=== PATIENT | female | born 1950 | race Two or more races ===

== ENCOUNTER 2018-07-22 02:25 | Emergency (ER) | payer OTHER ==
[~2018-07-22] VITALS: Ht 152.4 cm; Wt 63.5 kg
[2018-07-22] MEDS ORDERED: ZOCOR5 MG (02:37)
[2018-07-22] MEDS ORDERED: TOPROL XL100 MG (02:37)
[2018-07-22] MEDS ORDERED: ASPIR 8181 MG (02:37)
[2018-07-22] MEDS ORDERED: SKELAXIN800 MG PO (06:55)
[2018-07-22] MEDS ORDERED: ULTRACET PO (06:55)
[2018-07-22] MEDS ORDERED: BACTRIM DS TAB1 EACH PO (06:59)
== END 2018-07-22 08:07 | disposition home or self-care (01) ==
LOC: ER 02:25
DX: R10.32 Left lower quadrant pain (principal); R10.12 Left upper quadrant pain

== ENCOUNTER 2022-06-20 07:16 | Outpatient (CLI) | payer OTHER ==
[~2022-06-20 07:16] MED LIST: ASPIR 8181 MG; ATORVASTATIN CA20 MG PO; BACTRIM DS TAB1 EACH PO; SKELAXIN800 MG PO; TOPROL XL100 MG; ULTRACET PO; ZOCOR5 MG
== END 2022-06-20 07:17 | disposition home or self-care (01) ==
LOC: NUCLEAR 07:16
PROVIDERS: ATTEND Internal Medicine
DX: R19.7 Diarrhea, unspecified (principal); R10.9 Unspecified abdominal pain; Z88.8 Allergy status to other drugs, medicaments and biological substances
CPT/HCPCS: 78227; A9537; J2805

== ENCOUNTER 2022-10-15 09:18 | Emergency (ER) | payer OTHER ==
[~2022-10-15] VITALS: Ht 152.4 cm; Wt 65.8 kg
[2022-10-15] MEDS ORDERED: KETO10TA2 PO (14:02)
== END 2022-10-15 14:26 | disposition home or self-care (01) ==
LOC: ER 09:18
DX: M79.605 Pain in left leg (principal); M25.562 Pain in left knee; Z88.8 Allergy status to other drugs, medicaments and biological substances; I10 Essential (primary) hypertension; I87.2 Venous insufficiency (chronic) (peripheral)

== ENCOUNTER 2022-10-16 19:58 | Emergency (ER) | payer OTHER ==
[~2022-10-16] VITALS: Ht 152.4 cm; Wt 65.8 kg
[~2022-10-16 19:58] MED LIST changes: +KETO10TA2 PO
[2022-10-17] MEDS ORDERED: KETO10TA2 PO (00:42)
[2022-10-17] MEDS ORDERED: ORPHENADRINE C100 MG PO (00:42)
== END 2022-10-17 01:34 | disposition home or self-care (01) ==
LOC: ER 19:58
DX: M25.562 Pain in left knee (principal)

== ENCOUNTER 2022-12-13 09:23 | Emergency (ER) | payer OTHER ==
[~2022-12-13] VITALS: Ht 157.5 cm; Wt 63.5 kg
[~2022-12-13 09:23] MED LIST changes: +ORPHENADRINE C100 MG PO
[2022-12-13] MEDS ORDERED: LOSARTAN POTAS100 MG PO (09:32)
== END 2022-12-13 12:14 | disposition home or self-care (01) ==
LOC: ER 09:23
DX: R10.9 Unspecified abdominal pain (principal); N39.0 Urinary tract infection, site not specified; Z88.8 Allergy status to other drugs, medicaments and biological substances; I10 Essential (primary) hypertension

== ENCOUNTER 2023-11-11 07:24 | Outpatient (CLI) | payer OTHER ==
[~2023-11-11 07:24] MED LIST changes: +LOSARTAN POTAS100 MG PO
== END 2023-11-11 07:29 | disposition home or self-care (01) ==
LOC: TOM 07:24
PROVIDERS: ATTEND Internal Medicine
DX: R10.9 Unspecified abdominal pain (principal); R74.01 Elevation of levels of liver transaminase levels

== ENCOUNTER → 2023-11-11 08:31 | Outpatient (CLI) | payer OTHER ==
[2023-11-11 09:58] LABS: CREATININE SERUM 0.85 mg/dL (0.55-1.02)
== END | disposition home or self-care (01) ==
LOC: LAB 08:31
PROVIDERS: ATTEND Radiology Diagnostic Radiology
DX: R10.9 Unspecified abdominal pain (principal); R74.01 Elevation of levels of liver transaminase levels

== ENCOUNTER 2024-01-31 19:33 | Emergency (ER) | payer OTHER ==
[~2024-01-31] VITALS: Ht 152.4 cm; Wt 63.5 kg
[2024-01-31] MEDS ORDERED: KETOROLAC TROMETHAMINE 60 MG VIAL IM STA (22:46)
[2024-01-31] MEDS ORDERED: KETOROLAC TROMETHAMINE 60 MG VIAL IM ONE (22:51)
== END 2024-01-31 22:55 | disposition home or self-care (01) ==
LOC: ER 19:34
DX: M62.830 Muscle spasm of back (principal); Z88.8 Allergy status to other drugs, medicaments and biological substances
CPT/HCPCS: 96372; 99282; J1885

== ENCOUNTER 2024-02-15 08:48 | Emergency (ER) | payer OTHER ==
[~2024-02-15] VITALS: Ht 152.4 cm; Wt 63.5 kg
[2024-02-15] MEDS ORDERED: KETOROLAC TROMETHAMINE 60 MG VIAL IM ONE (10:15)
== END 2024-02-15 12:10 ==
LOC: ER 08:49
DX: M25.512 Pain in left shoulder (principal); M77.8 Other enthesopathies, not elsewhere classified; I10 Essential (primary) hypertension; Z88.8 Allergy status to other drugs, medicaments and biological substances

== ENCOUNTER → 2024-06-12 | Emergency (ER) | payer OTHER ==
[~2024-06-12] VITALS: Ht 149.9 cm; Wt 63.5 kg
== END | disposition left against medical advice (07) ==
LOC: ER 21:37
DX: Z53.21 Procedure and treatment not carried out due to patient leaving prior to being seen by health care provider (principal)

== ENCOUNTER 2024-07-15 22:52 | Emergency (ER) | payer OTHER ==
[~2024-07-15] VITALS: Ht 152.4 cm; Wt 63.5 kg
[2024-07-16] MEDS ORDERED: CEFTRIAXONE SODIUM 1,000 MG VIAL IV STA (02:42)
[2024-07-16] MEDS ORDERED: KETOROLAC TROMETHAMINE 30 MG VIAL IV STA (02:42)
[2024-07-16 04:03] LABS: HEMATOCRIT 42.7 % (36.0-45.00); HEMOGLOBIN 14.8 g/dL (12.0-15.00); MEAN CELL VOLUME 91.2 fL (80.00-100.00); MEAN CORPUSCULAR HEMOGLOBIN 31.6 pg (27.00-32.0); MEAN CORPUSCULAR HGB CONC 34.6 g/dl (32.0-36.0); PLATELET COUNT 234 K/uL (150-450); RED BLOOD COUNT 4.68 M/uL (4.00-6.00); RED CELL DISTRIBUTION WIDTH 13.6 % (11.5-14.5)
[2024-07-16 04:14] LABS: ALBUMIN 4.1 gm/dL (3.4-5.0); BILIRUBIN TOTAL 2.9 mg/dL (0.3-1.2); CALCIUM 9.4 mg/dL (8.5-10.1); CREATININE SERUM 0.91 mg/dL (0.55-1.02); GFR 60.1; POTASSIUM 3.82 mEq/L (3.5-5.1); TOTAL PROTEIN 8.1 gm/dL (6.4-8.2)
[2024-07-16] MEDS ORDERED: CLINDAMYCIN PHOSPHATE 150 MG/ML (300mg) IV STA (06:40)
[2024-07-16] MEDS ORDERED: CLEOCIN HCL300 MG PO (06:45)
== END 2024-07-16 07:51 ==
LOC: ER 22:54
PROVIDERS: General Practice
DX: K11.20 Sialoadenitis, unspecified (principal); I10 Essential (primary) hypertension; Z88.9 Allergy status to unspecified drugs, medicaments and biological substances
CPT/HCPCS: 36415; 70491; Q9965

== ENCOUNTER 2024-12-01 08:16 | Emergency (ER) | payer OTHER ==
[~2024-12-01] VITALS: Ht 152.4 cm; Wt 68.0 kg
[~2024-12-01 08:16] MED LIST changes: +CLEOCIN HCL300 MG PO
[2024-12-01] MEDS ORDERED: METRONIDAZOLE/SODIUM CHLORIDE 500 MG/100 ML PIGGYBACK IV ONE ×2 (08:48→09:00)
[2024-12-01 09:13] LABS: PH,URINE 6.5 (5.0-8.0); URINE APPEARANCE Clear; URINE BILIRRUBIN Negative (NEGATIVE); URINE BLOOD Trace; URINE COLOR Yellow; URINE GLUCOSE Negative (NEGATIVE); URINE KETONE Negative (NEGATIVE); URINE LEUKOCYTE Trace; URINE NITRATE Negative; URINE PROTEIN Negative (NEGATIVE); URINE UROBILINOGEN 0.2 E.U./dl
[2024-12-01 09:14] LABS: URINE BACTERIA 347.4 uL (0.0-1933); URINE EPITHELIAL CELLS 3.1 uL (0.0-38.8); URINE RBC 20.1 uL (0.0-20.8); URINE WBC 23.7 uL (0.0-23.2)
[2024-12-01 09:17] LABS: HEMATOCRIT 40.6 % (36.0-45.00); HEMOGLOBIN 14.1 g/dL (12.0-15.00); MEAN CELL VOLUME 91.5 fL (80.00-100.00); MEAN CORPUSCULAR HEMOGLOBIN 31.7 pg (27.00-32.0); MEAN CORPUSCULAR HGB CONC 34.7 g/dl (32.0-36.0); PLATELET COUNT 234 K/uL (150-450); RED BLOOD COUNT 4.43 M/uL (4.00-6.00); RED CELL DISTRIBUTION WIDTH 14.2 % (11.5-14.5)
[2024-12-01 10:35] LABS: ALBUMIN 3.5 gm/dL (3.4-5.0); BILIRUBIN TOTAL 2.49 mg/dL (0.3-1.2); CALCIUM 8.9 mg/dL (8.5-10.1); CREATININE SERUM 0.73 mg/dL (0.55-1.02); GFR 77.51; GLOBULINA 3.6 G/DL (2.4-3.5); POTASSIUM 3.33 mEq/L (3.5-5.1); TOTAL PROTEIN 7.1 gm/dL (6.4-8.2)
== END 2024-12-01 14:40 | disposition home or self-care (01) ==
LOC: ER 08:17
PROVIDERS: Emergency Medicine
DX: K57.32 Diverticulitis of large intestine without perforation or abscess without bleeding (principal); K42.9 Umbilical hernia without obstruction or gangrene; Q63.2 Ectopic kidney; I10 Essential (primary) hypertension

== ENCOUNTER 2025-07-03 03:06 | Emergency (ER) | payer OTHER ==
[~2025-07-03] VITALS: Ht 147.3 cm; Wt 68.0 kg
[2025-07-03] MEDS ORDERED: VITAMIN D310 MCG/1 M PO (03:19)
[2025-07-03] MEDS ORDERED: CEFTRIAXONE SODIUM 1,000 MG VIAL IM STA (04:12)
[2025-07-03] MEDS ORDERED: DIPHENHYDRAMINE HCL 25 MG CAPSULE PO STA (04:13)
[2025-07-03] MEDS ORDERED: KETOROLAC TROMETHAMINE 30 MG VIAL IM STA (04:14)
== END 2025-07-03 04:44 | disposition home or self-care (01) ==
LOC: ER 03:06
DX: N76.0 Acute vaginitis (principal); L29.89 Other pruritus